=== PATIENT | male | born 1970 | race Caucasian/White ===

== ENCOUNTER → 2021-03-13 | Outpatient (CLI) | payer BC, OTHER ==
[2021-03-13 11:13] LABS: HEMOGLOBIN 15.3 gm/dl (14.0-17.5); RED BLOOD COUNT 5.07 M/UL (4.20-5.50); WHITE BLOOD COUNT 8.4 K/UL (4.5-11.0)
[2021-03-13 15:40] LABS: BUN/CREATININE RATIO 23 (0-10)
[2021-03-14 08:14] LABS: TESTOSTERONE, SERUM 10 ng/dL (264-916)
[2021-03-14 09:14] LABS: VITAMIN D, 25-HYDROXY 28.8 ng/mL (30.0-100.0)
== END ==
LOC: LAB 10:42
PROVIDERS: Nurse Practitioner
DX: Z12.5 Encounter for screening for malignant neoplasm of prostate (principal); Z00.01 Encounter for general adult medical examination with abnormal findings; R53.83 Other fatigue; I10 Essential (primary) hypertension; R73.09 Other abnormal glucose; E55.9 Vitamin D deficiency, unspecified; R12 Heartburn; M79.10 Myalgia, unspecified site; E29.1 Testicular hypofunction; Z79.01 Long term (current) use of anticoagulants; Z79.890 Hormone replacement therapy; Z79.899 Other long term (current) drug therapy
CPT/HCPCS: 36415; 80053; 80061; 82607; 82746; 83036; 83735; 84153; 84403; 84443; 85025

== ENCOUNTER → 2021-07-04 | Outpatient (CLI) | payer BC | LOC: KOH-I 07-03 14:00 → EXRD 07-03 14:00 | DX: R22.43 Localized swelling, mass and lump, lower limb, bilateral (principal) | CPT/HCPCS: 93970 ==

== ENCOUNTER → 2021-08-21 | Outpatient (CLI) | payer BC ==
[2021-08-21 09:57] LABS: HEMOGLOBIN 14.5 gm/dl (14.0-17.5); RED BLOOD COUNT 4.77 M/UL (4.20-5.50); WHITE BLOOD COUNT 5.3 K/UL (4.5-11.0)
[2021-08-22 08:13] LABS: FSH 43.4 mIU/mL (1.5-12.4); PROLACTIN 6.1 ng/mL (4.0-15.2)
== END ==
LOC: LAB 08:35
PROVIDERS: Internal Medicine
DX: E29.1 Testicular hypofunction (principal); R94.8 Abnormal results of function studies of other organs and systems
CPT/HCPCS: 36415; 83001; 83002; 83540; 83550; 84146; 84153; 84402; 84403; 84443; 85027

== ENCOUNTER → 2021-09-19 | Outpatient (CLI) | payer BC | LOC: LAB 08:14 | DX: Q98.4 Klinefelter syndrome, unspecified (principal) | CPT/HCPCS: 36415 ==

== ENCOUNTER → 2021-12-25 | Outpatient (CLI) | payer BC ==
[2021-12-25 08:42] LABS: HEMOGLOBIN 15.8 gm/dl (14.0-17.5); RED BLOOD COUNT 5.14 M/UL (4.20-5.50); WHITE BLOOD COUNT 6.3 K/UL (4.5-11.0)
== END ==
LOC: LAB 08:24
PROVIDERS: Internal Medicine
DX: E29.1 Testicular hypofunction (principal); R94.8 Abnormal results of function studies of other organs and systems
CPT/HCPCS: 36415; 84153; 84402; 84403; 85027

== ENCOUNTER → 2022-03-27 | Outpatient (CLI) | payer BC | LOC: LAB 08:24 | PROVIDERS: Internal Medicine | DX: E29.1 Testicular hypofunction (principal) | CPT/HCPCS: 36415; 84402; 84403 ==